=== PATIENT | female | born 1980 | race Two or more races ===

== ENCOUNTER 2023-08-22 11:05 | Emergency (ER) | payer MEDICAID, OTHER ==
[~2023-08-22] VITALS: Ht 167.6 cm; Wt 92.8 kg
[2023-08-22 11:48] LABS: Basophils # (auto) 0 10 ^3/uL (0-0.2); Basophils % (auto) 0.4 % (0.0-2.0); Eosinophils # (auto) 0 10 ^3/uL (0-0.8); Eosinophils % (auto) 0.6 % (0.0-7.0); Hematocrit 43.5 % (36.0-46.0); Hemoglobin 14.1 g/dL (12.2-16.2); Lymphocytes # (auto) 2.5 10 ^3/uL (0.4-5.4); Mean Corpuscular Hemoglobin 27.7 pg (28.0-32.0); Mean Corpuscular Hgb Conc. 32.4 g/dL (32.0-36.0); Mean Corpuscular Volume 85.6 fL (80.0-100.0); Monocytes # (auto) 0.2 10 ^3/uL (0-1.3); Monocytes % (auto) 3.2 % (0.0-12.0); Neutrophils # (auto) 3.3 10 ^3/uL (1.6-8.6); Neutrophils % (auto) 53.8 % (37.0-80.0); Red Blood Cells 5.08 10^6/uL (4.0-5.20); White Blood Cell 6.1 10^3/uL (4.4-10.8)
[2023-08-22 11:56] LABS: Urine Bacteria NONE SEEN /hpf (None Seen); Urine Blood Negative /uL (Negative); Urine Clarity Clear (Clear); Urine Protein, UAD Negative (Negative); Urine Specific Gravity 1.014 (1.001-1.035); Urine Urobilinogen Normal (Negative); Urine WBC 2 /hpf (0 - 5); Urine pH 7.5 (5.0-8.0)
[2023-08-22 12:05] LABS: Alanine Aminotransferase 34 U/L (7-40); Albumin 4.7 g/dL (3.2-4.8); Alkaline Phosphatase 70 U/L (46-116); Anion Gap 6 (5-15); Aspartate Aminotransferase 21 U/L (13-40); BUN/Creatinine Ratio 14.1 (10.0-20.0); Bilirubin, Total 0.5 mg/dL (0.2-1.0); Blood Urea Nitrogen 9 mg/dL (9-23); Calcium 9.8 mg/dL (8.7-10.4); Carbon Dioxide 27 mmol/L (20-30); Chloride 108 mmol/L (98-107); Glucose 90 mg/dL (74-106); Lipase 29 U/L (12-53); Potassium 4.2 mmol/L (3.5-5.1); Sodium 141 mmol/L (136-145); Total Protein 7.4 g/dL (5.7-8.2)
[2023-08-22 12:13] LABS: Urine Color STRAW (Yellow)
[2023-08-22] MEDS: LIDOCAINE VISCOUS 2% 15ML UD PO ONE (12:24)
[2023-08-22] MEDS: MAALOX PLUS or MAALOX 30 ML PO ONE (12:25)
[2023-08-22] MEDS: PANTOPRAZOLE 40 MG TAB PO ONE (12:38)
[2023-08-22] MEDS: fentaNYL CITRATE 100 MCG/2 ML VL IV ONE (16:03)
[2023-08-22] MEDS ORDERED: OMEP1CAP70 PO (16:23)
[2023-08-22] MEDS ORDERED: DOCUSATE SOD 100 MG CAP PO PRN (16:30)
[2023-08-22] MEDS ORDERED: DICYCLOMINE HCL 10 MG CAP PO PRN (16:30)
[2023-08-22 16:55] LABS: Triglycerides 126 mg/dL (< 150)
[2023-08-22 16:56] LABS: LDL Cholesterol 115 mg/dL (< 100)
[2023-08-22 16:57] LABS: Cholesterol 162 mg/dL (< 200); HDL Cholesterol 37 mg/dL (40-59)
[2023-08-22] MEDS: HYDROcodone-ACET 5/325MG TAB PO ONE (17:30)
[2023-08-22] MEDS: DOCUSATE SOD 100 MG CAP PO ONE (17:30)
[2023-08-22] MEDS: LACTULOSE 20Gm/30ML SOLN PO ONE (17:31)
[2023-08-22] MEDS: DICYCLOMINE HCL 10 MG CAP PO ONE (17:31)
[2023-08-22] MEDS: FLEET ENEMA(ADULT) 135 ML PR ONE (18:07)
[2023-08-22 20:26] VITALS: BP 118/69; PULSE 57; RESP 14; TEMP 98.2; O2SAT 98
[2023-08-23] MEDS ORDERED: LACTULOSE 20Gm/30ML SOLN PO SCH (10:00)
== END 2023-08-22 22:34 | disposition left against medical advice (07) ==
LOC: ER 11:05
DX: R10.13 Epigastric pain (principal); Z98.890 Other specified postprocedural states; Z79.899 Other long term (current) drug therapy
CPT/HCPCS: 36415; 74176; 80053; 80061; 81001; 83036; 83605; 83690; 83880; 84443; 84484; 85025; 99284; J0500